=== PATIENT | male | born 1955 | race Caucasian/White ===

== ENCOUNTER 2018-05-15 18:51 | Inpatient (IN) | payer MEDICAID, OTHER | END 2018-05-22 21:00 | disposition left against medical advice (07) | LOC: ER 18:51 → PCU 3S 05-16 08:25 → ED HOLD 21:17 | DX: R65.20 Severe sepsis without septic shock (principal); J96.00 Acute respiratory failure, unspecified whether with hypoxia or hypercapnia; D69.6 Thrombocytopenia, unspecified; J15.4 Pneumonia due to other streptococci; E11.9 Type 2 diabetes mellitus without complications; E66.9 Obesity, unspecified; Z68.38 Body mass index [BMI] 38.0-38.9, adult ==